=== PATIENT | female | born 1990 | race Caucasian/White ===

== ENCOUNTER 2018-09-03 15:21 | Emergency (ER) | payer OTHER ==
[~2018-09-03] VITALS: Ht 170.2 cm; Wt 88.5 kg
== END 2018-09-03 18:50 | disposition home or self-care (01) ==
LOC: ER 15:21
DX: M94.0 Chondrocostal junction syndrome [Tietze] (principal); J40 Bronchitis, not specified as acute or chronic; F06.4 Anxiety disorder due to known physiological condition

== ENCOUNTER 2025-07-04 12:35 | Outpatient (CLI) | payer OTHER ==
[~2025-07-04 12:35] MED LIST: DUI500 PO
== END 2025-07-04 12:39 | disposition home or self-care (01) ==
LOC: PRENATAL 12:35
PROVIDERS: ATTEND Obstetrics & Gynecology Maternal & Fetal Medicine
DX: O36.80X0 Pregnancy with inconclusive fetal viability, not applicable or unspecified (principal); Z36.82 Encounter for antenatal screening for nuchal translucency; Z14.8 Genetic carrier of other disease; O30.91 Multiple gestation, unspecified, first trimester; O09.521 Supervision of elderly multigravida, first trimester; Z3A.12 12 weeks gestation of pregnancy